=== PATIENT | female | born 1965 | race Caucasian/White ===

== ENCOUNTER 2021-08-13 22:47 | Emergency (ER) | payer BC ==
[~2021-08-13] VITALS: Ht 157.5 cm; Wt 72.6 kg
[2021-08-14] MEDS ORDERED: LIDOCAINE HCL 1% 20 ML VIAL IJ ONE
[2021-08-14] MEDS ORDERED: SULFAMETH/TRIMETH 800/160 MG TABLET PO ONE (00:15)
[2021-08-14] MEDS ORDERED: TDAP DIPH,PERTUSS,TET VAC/PF 0.5 ML DISP.SYRIN IM ONE ×2 (00:15→00:18)
[2021-08-14] MEDS ORDERED: SULFAMETH/TRIMETH 800/160 MG TABLET ONE (00:18)
[2021-08-14] MEDS ORDERED: SULF1TAB48 PO (00:34)
[2021-08-14 00:40] VITALS: BP 135/69
--- NOTE | 2021-08-14 00:40 | NUR ---
Patient discharged to home in stable condition. Written and verbal after care instructions given. Patient verbalizes understanding of instructions. Stressed follow up or return to ER for worsening s/s.
== END 2021-08-14 00:41 | disposition home or self-care (01) ==
LOC: ER 22:53
DX: S61.011A Laceration without foreign body of right thumb without damage to nail, initial encounter (principal); W26.0XXA Contact with knife, initial encounter; Y93.G9 Activity, other involving cooking and grilling; Y92.89 Other specified places as the place of occurrence of the external cause; Z85.3 Personal history of malignant neoplasm of breast
CPT/HCPCS: 12001; 90471; 90715; 99283; J3490; A4663